=== PATIENT | female | born 1995 ===

== ENCOUNTER 2018-11-08 22:01 | Emergency (ER) | payer OTHER ==
[2018-11-08] MEDS ORDERED: Albuterol-Ipratrop 3 mg / 0.5 (3 ml) UD ONE (22:19)
[2018-11-08] MEDS ORDERED: Albuterol 0.083% Inhal Sol (2.5 mg/3 mL) UD IH STA ×2 (22:30→22:31)
[2018-11-08] MEDS ORDERED: Albuterol 0.083% Inhal Sol (2.5 mg/3 mL) UD ONE (22:43)
[2018-11-08 23:02] VITALS: RESP 18
--- NOTE | 2018-11-08 23:40 | C.PDOC ---
History Of Present Illness 23 year old female presents to the ER with a complaint of nonproductive cough, runny nose, SOB, and wheezing since yesterday that has worsened since this morning. Patient tried an albuterol treatment at home with no relief. Denies fever, chest pain, nausea, vomiting, diarrhea, or abdominal pain. Time Seen by Provider: 11/08/18 22:17 Chief Complaint (Nursing): Shortness Of Breath History Per: Patient History/Exam Limitations: no limitations Onset/Duration Of Symptoms: Days (Yesterday) Current Symptoms Are (Timing): Still Present Current Respiratory Medications: Albuterol Associated Symptoms: denies: Fever, Chest Pain, Other (nausea, vomiting, diarrhea, abdominal pain) Recent travel outside of the [place]: No Past Medical History Reviewed: Historical Data, Nursing Documentation, Vital Signs Vital Signs: Last Vital Signs Temp 98.4 F 11/08/18 22:18 Pulse 90 11/08/18 22:18 Resp 18 11/08/18 23:01 BP 113/68 11/08/18 22:18 Pulse Ox 97 11/08/18 23:01 - Medical History PMH: Asthma Surgical History: Appendectomy Family History: States: Unknown Family Hx - Social History Hx Alcohol Use: No Hx Substance Use: No - Immunization History Hx Tetanus Toxoid Vaccination: No Hx Influenza Vaccination: No Hx Pneumococcal Vaccination: No Review Of Systems Except As Marked, All Systems Reviewed And Found Negative. ENT: Positive for: Nose Discharge Respiratory: Positive for: Cough, Shortness of Breath, Wheezing Physical Exam - Physical Exam Appears: Non-toxic, Other (Speaking in complete sentences) Skin: Normal Color, Warm, Dry Head: Atraumatic, Normacephalic Eye(s): bilateral: Normal Inspection Oral Mucosa: Moist Throat: Normal, No Erythema, No Exudate Neck: Normal, Supple Chest: Symmetrical, No Tenderness Cardiovascular: Rhythm Regular Respiratory: No Accessory Muscle Use, Wheezing (Bilateral expiratory) Gastrointestinal/Abdominal: Soft, No Tenderness Extremity: Normal ROM (x4) Neurological/Psych: Oriented x3, Normal Speech Gait: Steady ED Course And Treatment O2 Sat by Pulse Oximetry: 97 (Room air) Pulse Ox Interpretation: Normal Progress Note: Albuterol nebulizer and prednisone administered. On reevaluation, patient states she feels better after meds, will discharge home. Disposition - Disposition Disposition: HOME/ ROUTINE Disposition Time: 23:40 Condition: STABLE Additional Instructions: FOLLOW UP WITH YOUR DOCTOR IN 1-2 DAYS USE MEDICATIONS DIRECTED RETURN TO ER IF YOUR SYMPTOMS WORSEN Prescriptions: Albuterol 0.5% [Albuterol 0.5% Inhal Sarah (2.5 mg/0.5 ml) UD] 2.5 mg IH Q6 PRN #1 bottle PRN Reason: Wheezing Benzonatate [Tessalon Perles] 100 mg PO BID PRN #15 sgl PRN Reason: Cough predniSONE [predniSONE Tab] 40 mg PO DAILY #8 tab Instructions: Asthma, Adult (DC) Forms: [employer] (Azeri) Print Language: AUSTRALIAN - Clinical Impression Clinical Impression: Viral upper respiratory infection, Asthma exacerbation - Scribe Statement The provider has reviewed the documentation as recorded by the Scribdoe Demarco All medical record entries made by the Scribe were at my direction and personally dictated by me. I have reviewed the chart and agree that the record accurately reflects my personal performance of the history, physical exam, medical decision making, and the department course for this patient. I have also personally directed, reviewed, and agree with the discharge instructions and disposition.
[2018-11-08 23:56] VITALS: BP 106/75; PULSE 94; TEMP 98.6
[2018-11-09 02:55] VITALS: O2SAT 97
== END 2018-11-08 23:56 | disposition home or self-care (01) ==
LOC: C.ER 22:01
DX: J06.9 Acute upper respiratory infection, unspecified (principal); J45.901 Unspecified asthma with (acute) exacerbation